=== PATIENT | female | born 1990 | race Two or more races ===

== ENCOUNTER 2019-06-11 15:40 | Emergency (ER) | payer MEDICAID ==
[~2019-06-11] VITALS: Ht 165.1 cm; Wt 54.9 kg
[2019-06-11 15:45] VITALS: BP 117/73; Ht 165.1 cm; Wt 54.9 kg
== END 2019-06-11 20:31 | disposition left against medical advice (07) ==
LOC: ED 15:40
DX: Z53.21 Procedure and treatment not carried out due to patient leaving prior to being seen by health care provider (principal)

== ENCOUNTER 2019-08-13 23:51 | Emergency (ER) | payer MEDICAID ==
[~2019-08-13] VITALS: Ht 165.1 cm; Wt 55.8 kg
[2019-08-14 00:01] VITALS: Ht 165.1 cm; Wt 55.8 kg
[2019-08-14 00:55] LABS: CALCIUM 8.3 mg/dL (8.5-10.1); CARBON DIOXIDE 28.5 mmol/L (21-32); CHLORIDE SERUM 103 mmol/L (98-107); CREATININE SERUM 0.8 mg/dL (0.6-1.0); GFR1 > 60 mL/min; GLUCOSE SERUM 89 mg/dL (74-106); POTASSIUM SERUM 3.4 mmol/L (3.5-5.1); SODIUM SERUM 140 mmol/L (136-145)
[2019-08-14 00:57] LABS: BASOPHIL % 0.3 % (0-2); PLATELET COUNT 194 x10^3mcL (130-400); RED CELL DISTRIBUTION WIDTH 12.7 % (11.5-14.5)
[2019-08-14 01:00] LABS: ALBUMIN 3.7 g/dL (3.4-5.0); ALKALINE PHOSPHATASE 52 U/L (46-116); ALT/SGPT 26 U/L (14-59); AST/SGOT 16 U/L (15-37); BILIRUBIN TOTAL 0.24 mg/dL (0.20-1.00); TOTAL PROTEIN, SERUM 7.4 g/dL (6.4-8.2)
[2019-08-14 02:18] LABS: UA SPECIFIC GRAVITY 1.015 (1.005-1.035); microscopic required? YES; urine erythrocyte TRACE (NEGATIVE)
[2019-08-14 02:20] VITALS: BP 96/50
== END 2019-08-14 02:20 | disposition home or self-care (01) ==
LOC: ED 23:51
PROVIDERS: Emergency Medicine
DX: B34.9 Viral infection, unspecified (principal)
CPT/HCPCS: 36600; 87804; J1885; J2405; J7030; Q0092